=== PATIENT | male | born 1980 | race Two or more races ===

== ENCOUNTER 2024-09-05 12:59 | Emergency (ER) | payer SELFPAY ==
[~2024-09-05] VITALS: Ht 177.8 cm; Wt 135.0 kg
[2024-09-05 15:09] VITALS: BP 147/94; PULSE 107; RESP 20; TEMP 98.4; O2SAT 98
--- NOTE | 2024-09-05 15:12 | ED.PDOC ---
History of Present Illness(SKN HPI Comments This is a pleasant 44-year-old male that presents for wound care supplies. Patient was seen at [facility] two days ago for foot pain and patient was diagnosed with an abscess of the left foot and cellulitis of the left foot. Patient underwent a full workup in the emergency department. BNP CMP lactic acid and blood cultures were drawn. The patient had a x-ray of the left foot and results were unremarkable. During the ER visit the patient was given Toradol, Zosyn and vancomycin. Labs from the ER visit were reassuring. WBC was at 12.9, neutrophils at 77.1, BNP was unremarkable and lactic acid was 1.8 patient was then discharged home with ibuprofen, clindamycin 150 mg instructed to take two tablets 3 times a day for 10 days and he was also prescribed Bactrim in his instructed to take one tablet b.i.d. for 10 days patient complains of any fevers chills nausea vomiting diarrhea drainage from the affected side. Patient only requesting wound care Chief Complaint: Abscess Time Seen by MD: 13:19 Primary Care Provider: NONE History of Present Illness: Nurses Notes, Medications, Allergies Allergies: Coded Allergies: NO KNOWN ALLERGIES (Unverified , 09/05/24) Information Source: Patient Mode of Arrival: EMS All Other Systems: Reviewed and Negative (per hpi) Physical Exam General Appearance: No Apparent Distress, Normal HEENT: Normal ENT Inspection, Pharynx Normal, TMs Normal Neck: Full Range of Motion, Non-Tender, Normal, Normal Inspection Respiratory: Chest Non-Tender, Lungs Clear, No Accessory Muscle Use, No Re spiratory Distress, Normal Breath Sounds Cardiovascular: No Edema, No JVD, No Murmur, No Gallop, Normal Peripheral Pulses, Regular Rate/Rhythm Breast Exam: Deferred Gastrointestinal: No Organomegaly, Non Tender, No Pulsatile Mass, Normal Bowel Sounds, Soft Genitalia: Deferred Pelvic: Deferred Rectal: Deferred Extremities: No calf tenderness, Normal capillary refill, Normal inspection, Normal range of motion, Non-tender, No pedal edema Musculoskeletal : Extremity Location: Foot (Appears well. No signs of discharge. No TTP. Full ROM. Distal sensation intact.) Apperance: Normal Neurologic: Alert, medical director II-XII nml as Tested, No Motor Deficits, Normal Affect, Normal Mood, No Sensory Deficits Cerebellar Function: Normal Reflexes: Normal Skin: Dry, Normal Color, Warm Lymphatic: No Adenopathy Was a procedure done? Was a procedure done?: No Differential Diagnosis (INTG) Differential Diagnosis: Other X-Ray, Labs, Meds, VS Vital Signs Date Time Temp Pulse Resp B/P (MAP) Pulse Ox O2 Delivery O2 Flow Rate FiO2 09/05/24 15:09 98.4 107 20 147/94 (111) 98 98.4 09/05/24 15:09 107 20 98 Room Air 09/05/24 13:08 98.4 107 20 147/94 (111) 98 X-Ray, Labs, Meds, VS Comment On reevaluation, patient had symptomatic improvement. Patient is stable for discharge at this time. External notes reviewed. Test results and diagnostic imaging interpreted. All diagnostic findings, discharge care, education and instructions provided Follow-up with PCP in 2 to 3 days Patient verbalized understanding and agreed to treatment plan Vital signs stable, afebrile, no acute distress noted Patient ambulatory with strong steady gait Advised to return precautions for any new or worsening symptoms, return to ER immediately for re-evaluation Patient is aware that the purpose of this visit was for an acute medical emergency requiring emergent stabilization. Chronic conditions, including malignancies have not been ruled out. Patient is instructed to follow up with PCP as directed and discharge instructions for continued care and workup. If unable to arrange follow-up, patient is to return to the emergency department for reassessment. Patient (parent or legal guardian if applicable) was given verbal and written discharge instructions and acknowledges understanding. Time of 1ST Reevaluation: 15:00 Reevaluation 1ST: Improved Patient Education/Counseling: Diagnosis, Treatment Family Education/Counseling: Diagnosis, Treatment Departure 1 Departure Time of Disposition: 15:11 Impression: Primary Impression: Visit for wound check Disposition: HOME / SELF CARE / HOMELESS Condition: Stable Critical Care Note Critical Care Time?: No Stability Stability form required: No Heart Score Heart Score: Heart Score Response (Comments) Value History N/A 0 EKG N/A 0 Age N/A 0 Risk Factors N/A 0 Troponin N/A 0 Total 0 TOÑO LUNA NP Sep 05, 2024 15:12
== END 2024-09-05 15:27 | disposition home or self-care (01) ==
LOC: EDBD 12:59 → ER 12:59
DX: M79.672 Pain in left foot (principal); Z48.00 Encounter for change or removal of nonsurgical wound dressing; Z79.899 Other long term (current) drug therapy
CPT/HCPCS: 82947